=== PATIENT | female | born 1960 | race Caucasian/White ===

== ENCOUNTER 2019-03-11 19:21 | Emergency (ER) | payer BC ==
[~2019-03-11] VITALS: Ht 165.1 cm; Wt 69.9 kg
[2019-03-11] MEDS ORDERED: LISINOPRIL20 MG PO (20:03)
[2019-03-11] MEDS ORDERED: CARVEDILOL6.25 MG PO (20:03)
== END 2019-03-11 20:41 | disposition home or self-care (01) ==
LOC: ER 19:21
DX: I10 Essential (primary) hypertension (principal)